=== PATIENT | female | born 1975 | race African-American/Black ===

== ENCOUNTER 2017-02-01 10:29 | Emergency (ER) | payer MEDICARE ==
[2017-02-01] MEDS ORDERED: MEPERIDINE 50 MG/ML SYRINGE IVP STA ×2 (12:47→14:41)
[2017-02-01] MEDS ORDERED: PROMETHAZINE INJ 25 MG in SODIUM CHLORIDE 0.9% 50 ML IV STA (12:47)
[2017-02-01] MEDS ORDERED: MEPERIDINE 50 MG/ML SYRINGE ONE ×2 (13:02→14:41)
[2017-02-01] MEDS ORDERED: PROMETHAZINE 25 MG/1 ML VIAL ONE (13:02)
== END 2017-02-01 14:57 | disposition home or self-care (01) ==
DX: D57.1 Sickle-cell disease without crisis (principal); N83.201 Unspecified ovarian cyst, right side; R03.0 Elevated blood-pressure reading, without diagnosis of hypertension